=== PATIENT | female | born 1990 | race Caucasian/White ===

== ENCOUNTER → 2020-12-07 02:08 | Observation (INO) ==
[2020-12-07 01:26] LABS: Bilirubin,Urine Negative (Negative); Blood,Urine Negative (Negative); Clarity,Urine Clear (Clear); Color,Urine Light-Yellow (Yellow); Glucose,Urine (UA) Normal (Normal); Ketones,Urine Negative (Negative); Leukocyte Esterase,Urine Negative (Negative); Nitrite,Urine Negative (Negative); PH,Urine 6.5 pH Units (5.0-8.0); Protein,Urine Negative (Neg-Trace); Specific Gravity,Urine 1.008 (1.010-1.025); Urobilinogen,Urine Normal (Normal)
== END | disposition home or self-care (01) ==
LOC: 1NENULAB
PROVIDERS: ADMIT Advanced Practice Midwife; ATTEND Advanced Practice Midwife

== ENCOUNTER → 2021-01-06 21:45 | Observation (INO) | END | disposition home or self-care (01) | LOC: 1NENULAB | PROVIDERS: ADMIT Advanced Practice Midwife; ATTEND Advanced Practice Midwife ==

== ENCOUNTER 2021-01-15 05:09 | Inpatient (IN) ==
[2021-01-15] MEDS ORDERED: Metoclopramide 10 MG/2 ML VIAL IVP PRN ×2 (05:12→12:18)
[2021-01-15] MEDS ORDERED: Ondansetron 4 MG/2 ML VIAL IVP PRN ×3 (05:12→12:18)
[2021-01-15] MEDS ORDERED: Azithromycin 500 MG in 0.9 % Sodium Chloride 250 ML IVPB PRN (05:12)
[2021-01-15] MEDS ORDERED: Famotidine 20 MG/2 ML VIAL IVP PRN (05:12)
[2021-01-15] MEDS ORDERED: Ringers Solution, Lactated 1,000 ML IVC ONE (05:12)
[2021-01-15] MEDS ORDERED: Naloxone 0.4 MG/ML INJ IVP PRN ×2 (05:12→12:18)
[2021-01-15] MEDS ORDERED: Ringers Solution, Lactated 1,000 ML IVC SCH (05:15)
[2021-01-15 05:51] LABS: Basophils % 0.2 %; Eosinophils # 0.1 K/mcL (0.0-0.6); Eosinophils % 0.7 %; Hematocrit 34.9 % (35.3-44.9); Hemoglobin 11.4 g/dL (11.5-15.4); Immature Granulocytes % 0.4 % (0-4); Lymphocytes # 2.9 K/mcL (0.6-4.6); Lymphocytes % 23.4 %; Mean Corpuscular HGB Conc 32.7 g/dL (31.6-35.5); Mean Corpuscular Hemoglobin 31.4 pg (28.0-33.3); Mean Corpuscular Volume 96.1 fL (83.0-100.0); Monocytes # 0.8 K/mcL (0.0-1.3); Monocytes % 6.2 %; Neutrophils # 8.4 K/mcL (1.6-8.9); Platelet Count 199 K/mcL (140-400); Red Blood Count 3.63 M/mcL (3.82-4.97); Red Cell Distribution Width 13.2 % (11.5-14.5); Segmented Neutrophils % 69.1 %; White Blood Count 12.2 K/mcL (4.3-11.1)
[2021-01-15 05:58] LABS: Amphetamine Screen,Urine Negative ng/mL (Cutoff=1000); Barbiturate Screen,Urine Negative ng/mL (Cutoff=200); Benzodiazepines Screen,Urine Negative ng/mL (Cutoff=200); Cannabinoid Screen,Urine Negative ng/mL (Cutoff = 50); Cocaine Screen,Urine Negative ng/mL (Cutoff= 300); Opiate Screen,Urine Negative ng/mL (Cutoff=300); Phencyclidine Screen,Urine Negative ng/mL (Cutoff=25)
[2021-01-15] MEDS ORDERED: *HR* FentaNYL (PF) 100 MCG/2 ML VIAL ONE (07:16)
[2021-01-15] MEDS ORDERED: *HR* Morphine Sulfate/PF 10 MG/10 ML AMPUL ONE (07:16)
[2021-01-15] MEDS ORDERED: EPHEDrine 50 MG/ML VIAL ONE (07:16)
[2021-01-15] MEDS ORDERED: Ondansetron 4 MG/2 ML VIAL ONE (07:17)
[2021-01-15] MEDS ORDERED: Acetaminophen IV 1,000 MG/100 ML BAG IVPB ONE (07:17)
[2021-01-15] MEDS ORDERED: CeFAZolin 2,000 MG/120 ML BAG IVPB ONE (07:27)
[2021-01-15] MEDS ORDERED: Ringers Solution, Lactated 1,000 ML ONE (07:59)
[2021-01-15] MEDS ORDERED: Promethazine 6.25 MG in Water for inj. (sterile) 20 ML IVPB PRN (08:44)
[2021-01-15] MEDS ORDERED: *HR* HYDROmorphone PF 0.5 MG/0.5 ML SYRINGE IVP PRN (08:44)
[2021-01-15] MEDS: Acetaminophen 325 MG TABLET PO SCH ×2 (12:00→18:02)
[2021-01-15] MEDS: Ibuprofen 600 MG TABLET PO SCH ×2 (12:00→18:03)
[2021-01-15] MEDS ORDERED: Oxytocin 20 units/ LR 1000 mL 20 UNIT/1,000 ML BAG IVC SCH (12:18)
[2021-01-15] MEDS: *HR* OxyCODONE Immed Rel 5 MG TABLET PO PRN (12:32)
[2021-01-15] MEDS ORDERED: Methylergonovine 0.2 MG/ML AMPUL IM ONE (13:28)
[2021-01-15] MEDS ORDERED: miSOPROStoL 100 MCG TABLET RC ONE (13:28)
[2021-01-16] MEDS: *HR* OxyCODONE Immed Rel 5 MG TABLET PO PRN ×2 (01:37→19:46)
[2021-01-16 04:52] LABS: Basophils % 0.2 %; Eosinophils % 0.2 %; Hematocrit 32.8 % (35.3-44.9); Hemoglobin 10.3 g/dL (11.5-15.4); Immature Granulocytes % 0.3 % (0-4); Lymphocytes # 2.2 K/mcL (0.6-4.6); Lymphocytes % 16.2 %; Mean Corpuscular HGB Conc 31.4 g/dL (31.6-35.5); Mean Corpuscular Hemoglobin 30.3 pg (28.0-33.3); Mean Corpuscular Volume 96.5 fL (83.0-100.0); Mean Platelet Volume 12.9 fL (9.4-12.4); Monocytes % 7.5 %; Neutrophils # 10.1 K/mcL (1.6-8.9); Platelet Count 179 K/mcL (140-400); Red Cell Distribution Width 13.2 % (11.5-14.5); Segmented Neutrophils % 75.6 %; White Blood Count 13.4 K/mcL (4.3-11.1)
[2021-01-16] MEDS: Ibuprofen 600 MG TABLET PO SCH ×3 (05:26→17:47)
[2021-01-16] MEDS: Simethicone 80 MG TAB.CHEW PO PRN (05:26)
[2021-01-16] MEDS: Acetaminophen 325 MG TABLET PO SCH ×3 (05:26→17:47)
[2021-01-16] MEDS: Prenatal Vit/FA 1 EACH TABLET PO SCH (08:12)
[2021-01-17] MEDS: Acetaminophen 325 MG TABLET PO SCH ×4 (00:12→18:39)
[2021-01-17] MEDS: *HR* OxyCODONE Immed Rel 5 MG TABLET PO PRN ×4 (00:12→22:58)
[2021-01-17] MEDS: Ibuprofen 600 MG TABLET PO SCH ×4 (00:12→18:39)
[2021-01-17] MEDS: Simethicone 80 MG TAB.CHEW PO PRN ×2 (06:23→20:34)
[2021-01-17] MEDS: Prenatal Vit/FA 1 EACH TABLET PO SCH (07:45)
[2021-01-18] MEDS: Ibuprofen 600 MG TABLET PO SCH ×2 (01:01→09:42)
[2021-01-18] MEDS: Acetaminophen 325 MG TABLET PO SCH (01:02)
[2021-01-18 06:44] VITALS: BP 100/67; PULSE 75; TEMP 97.4; O2SAT 97
[2021-01-18] MEDS: Prenatal Vit/FA 1 EACH TABLET PO SCH (09:42)
== END 2021-01-18 13:29 | disposition home or self-care (01) | DRG 539 ==
LOC: 1NENULAB 05:09 → EDSTATUS 07:30 → 1NENUOBS 12:09
PROVIDERS: ADMIT Obstetrics & Gynecology; ATTEND Obstetrics & Gynecology